=== PATIENT | male | born 1980 | race Hispanic/Latino ===

== ENCOUNTER 2025-02-28 08:02 | Emergency (ER) | payer OTHER, SELFPAY ==
[2025-02-28] MEDS ORDERED: Lidocaine 1% PF 5 ML VIAL ONE (08:25)
[2025-02-28] MEDS ORDERED: cefTRIAXone (ROCEPHIN) 1 GM VIAL ONE (08:25)
== END 2025-02-28 09:12 | disposition home or self-care (01) ==
LOC: ERS 08:02
DX: L03.115 Cellulitis of right lower limb (principal)
CPT/HCPCS: 96372; 99282; J0696